=== PATIENT | male | born 1975 | race Caucasian/White ===

== ENCOUNTER 2021-11-09 14:14 | Emergency (ER) | payer MEDICAID ==
[2021-11-09] MEDS ORDERED: Magnesium Citrate Solution 296 ML Bottle PO ONE (14:52)
[2021-11-09 15:08] LABS: ESTIMATED GFR 106 mL/min (>60)
[2021-11-09] MEDS ORDERED: Ondansetron 4 MG Tab.DIS PO STA (16:07)
== END 2021-11-09 16:32 | disposition home or self-care (01) ==
LOC: FB.ED 14:14
DX: K59.00 Constipation, unspecified (principal); J44.9 Chronic obstructive pulmonary disease, unspecified; F17.210 Nicotine dependence, cigarettes, uncomplicated; E66.9 Obesity, unspecified; Z68.30 Body mass index [BMI] 30.0-30.9, adult; Z88.2 Allergy status to sulfonamides
CPT/HCPCS: 36415; 74019; 80053; 81001; 82150; 83690; 85025; 99284; A9270-GY; Q0162